=== PATIENT | female | born 1950 ===

== ENCOUNTER 2018-02-20 21:34 | Emergency (ER) | payer OTHER ==
[2018-02-20 21:39] VITALS: BMI 40.2
[2018-02-20 21:57] VITALS: RESP 18; TEMP 98.7
--- NOTE | 2018-02-20 22:26 | ED PDOC ---
Arrival/HPI - General Chief Complaint: Abdominal Pain Time Seen by Provider: 02/20/18 21:36 Historian: Patient - History of Present Illness Narrative History of Present Illness (Text): 02/20/18 22:21 67yo female with PMHx of hypertension, NIDDM, HCL, bipolar who was bib EMS for 3days history of nausea, diarrhea and mild epigastric pain. She did not take any medication. Denies chest pain, SOB, vomiting, diaphoresis, tearing/ripping upper back pain, dizziness, melena, hematochezia, any other complaint. Past Medical History - Provider Review Nursing Documentation Reviewed: Yes - Infectious Disease Hx of Infectious Diseases: None - Tetanus Immunization Tetanus Immunization: Unknown - Cardiac Hx Cardiac Disorders: (enlarged heart) Hx Hypertension: Yes - Pulmonary Hx Asthma: Yes - Neurological Hx Neurological Disorder: No - HEENT Hx HEENT Disorder: No - Renal Hx Renal Disorder: No - Endocrine/Metabolic Hx Endocrine Disorders: Yes Hx Diabetes Mellitus Type 2: Yes - Hematological/Oncological Hx Blood Disorders: No - Integumentary Hx Dermatological Disorder: No - Musculoskeletal/Rheumatological Hx Musculoskeletal Disorders: No Hx Falls: No Hx Unsteady Gait: Yes (uses cane off balance) - Gastrointestinal Hx Gastrointestinal Disorders: No - Genitourinary/Gynecological Hx Genitourinary Disorders: No - Psychiatric Hx Psychophysiologic Disorder: No Hx Anxiety: Yes Hx Bipolar Disorder: Yes Hx Depression: No Hx Emotional Abuse: No Hx Hallucinations: No Hx Panic Disorder: No Hx Post Traumatic Stress Disorder: No Hx Psychosis: No Hx Physical Abuse: No Hx Schizophrenia: No Hx Sexual Abuse: No Hx Substance Use: No - Surgical History Hx Cholecystectomy: Yes Hx Hysterectomy: Yes Other/Comment: right breast cyst removed, vascular sx - Anesthesia Hx Anesthesia: Yes Hx Anesthesia Reactions: No Hx Malignant Hyperthermia: No - Suicidal Assessment Feels Threatened In Home Enviroment: No Family/Social History - Physician Review Nursing Documentation Reviewed: Yes Family/Social History: Unknown Family HX Smoking Status: Never Smoked Hx Alcohol Use: No Hx Substance Use: No Hx Substance Use Treatment: No Allergies/Home Meds Allergies/Adverse Reactions: Allergies No Known Allergies Allergy (Verified 02/20/18 21:40) Home Medications: Home Meds Medication Instructions Recorded Confirmed Captopril 50 mg PO BID 05/28/12 02/20/18 Gabapentin 300 mg PO BID 05/28/12 02/20/18 Metformin Hydrochloride [Metformin] 850 mg PO BID 05/28/12 02/20/18 Ergocalciferol [Drisdol 50,000 50,000 iu PO QWK 08/03/12 02/20/18 Intl Units Cap] Simvastatin 20 mg PO DAILY 08/03/12 02/20/18 Albuterol 0.083% [Albuterol 0.083% 2.5 mg IH DAILY 04/04/15 02/20/18 Inhal Lucy (2.5 mg/3 ml) UD] Albuterol Sulfate [Ventolin Hfa] 0.09 mg IH DAILY 04/04/15 02/20/18 Alendronate Sodium [Binosto] 70 mg PO DAILY 04/04/15 02/20/18 Amlodipine Besylate 5 mg PO DAILY 04/04/15 02/20/18 Clonazepam 0.5 mg PO PRN PRN 04/04/15 02/20/18 DiphenhydrAMINE [Benadryl] 50 mg PO PRN PRN 04/04/15 02/20/18 Ergocalciferol [Calciferol] 50,000 iu PO DAILY 04/04/15 02/20/18 Glimepiride [Amaryl] 1 mg PO DAILY 04/04/15 02/20/18 Levothyroxine [Synthroid] 0.025 mg PO DAILY 04/04/15 02/20/18 Lisinopril 30 mg PO DAILY 04/04/15 02/20/18 Omeprazole [Prilosec] 40 mg PO DAILY 04/04/15 02/20/18 Sertraline Hydrochloride 100 mg PO DAILY 04/04/15 02/20/18 [Sertraline] Tramadol Hydrochloride [Tramadol] 50 mg PO DAILY 04/04/15 02/20/18 Zolpidem Tartrate [Zolpidem] 10 mg PO DAILY 04/04/15 02/20/18 Review of Systems - Physician Review All systems were reviewed & negative as marked: Yes - Review of Systems Constitutional: Normal Eyes: Normal ENT: Normal Respiratory: Normal Cardiovascular: Normal Gastrointestinal: Abdominal Pain, Diarrhea, Nausea. absent: Constipation, Vomiting, Hematochezia, Hematemesis Genitourinary Female: Normal Musculoskeletal: Normal Skin: Normal Neurological: Normal Endocrine: Normal Hemo/Lymphatic: Normal Psychiatric: Normal Physical Exam Vital Signs Reviewed: Yes Vital Signs Temp Pulse Resp BP Pulse Ox 02/20/18 21:56 98.7 F 106 H 18 169/69 H 94 L Temperature: Afebrile Blood Pressure: Normal Pulse: Tachycardic Respiratory Rate: Normal Appearance: Positive for: Well-Appearing, Non-Toxic, Comfortable Pain Distress: None Mental Status: Positive for: Alert and Oriented X 3 - Systems Exam Head: Present: Atraumatic, Normocephalic Pupils: Present: PERRL Extroacular Muscles: Present: EOMI Conjunctiva: Present: Normal Mouth: Present: Moist Mucous Membranes Neck: Present: Normal Range of Motion Respiratory/Chest: Present: Clear to Auscultation, Good Air Exchange. No: Respiratory Distress, Accessory Muscle Use Cardiovascular: Present: Regular Rate and Rhythm, Normal S1, S2. No: Murmurs Abdomen: Present: Tenderness (Mild epigastric tenderness on deep palpation), Other (soft). No: Distention, Peritoneal Signs, Rebound, Guarding, McBurney's Point Tender, Rovsing's Sign Present Back: Present: Normal Inspection Upper Extremity: Present: Normal Inspection. No: Cyanosis, Edema Lower Extremity: Present: Normal Inspection. No: Edema Neurological: Present: GCS=15, CN II-XII Intact, Speech Normal Skin: Present: Warm, Dry, Normal Color. No: Rashes Psychiatric: Present: Alert, Oriented x 3, Normal Insight, Normal Concentration Medical Decision Making ED Course and Treatment: 02/21/18 01:27 Pt in ED for stated history. She was comfortable and in no distress in ED. On re evaluation she notes that she feels better. She was noted to tolerate PO fluid in ED. She had very mild tenderness with deep palpation. Lab was unremarkable with exception of BS of 215, pt is on hypoglycemic. Abdominal CT - No acute finding. 02/21/18 01:35 Result was DW the pt. She was DC hoem with Zofran and pepcid for her symptoms. She was advised to f/u with her PMD. Advised to return to ED if symptom worsens. - Lab Interpretations Lab Results: 02/20/18 22:58 02/20/18 22:58 Lab Results 02/21/18 00:48: Urine Color Yellow, Urine Appearance Clear, Urine pH 6.0, Ur Specific [place] <= 1.005, Urine Protein 30 H, Urine Glucose (UA) Negative, Urine Ketones Negative, Urine Blood Trace-lysed H, Urine Nitrate Negative, Urine Bilirubin Negative, Urine Urobilinogen 0.2, Ur Leukocyte Esterase Negative , Urine RBC Pending, Urine WBC Pending 02/20/18 22:58: pO2 43, VBG pH 7.35, VBG pCO2 53.0, VBG HCO3 29.3 H, VBG Total CO2 30.9 H, VBG O2 Sat (Calc) 80.6 H, VBG Base Excess 2.5 H, VBG Potassium 4.4, Sodium 140.0, Chloride 102.0, Glucose 224 H, Lactate 3.3 H, FiO2 21.0, Venous Blood Potassium 4.4 02/20/18 22:58: Sodium 144, Chloride 100, Potassium 4.5, Carbon Dioxide 27, Anion Gap 22 H, BUN 16, Creatinine 0.8, Est GFR ( Amer) > 60, Est GFR ( Non-Af Amer) > 60, Random Glucose 215 H, Calcium 10.2, Total Bilirubin 0.3, AST 33, ALT 32, Alkaline Phosphatase 76, Lactate Dehydrogenase 416, Total Creatine Kinase 56, Troponin I < 0.01, Total Protein 8.5 H, Albumin 4.8, Globulin 3.7, Albumin/Globulin Ratio 1.3, Amylase 83, Lipase 121 02/20/18 22:58: PT 12.2, INR 1.07, APTT 28.0 02/20/18 22:58: WBC 10.1, RBC 4.88, Hgb 11.9 L, Hct 38.2, MCV 78.3 L, MCH 24.4 L , MCHC 31.2, RDW 14.9 H, Plt Count 239, MPV 9.3, Gran % 72.8 H, Lymph % (Auto) 19.1 L, [place] % (Auto) 6.8 H, Eos % (Auto) 1.1 L, Baso % (Auto) 0.2, Gran # 7.38 H, Lymph # (Auto) 1.9, [place] # (Auto) 0.7 H, Eos # (Auto) 0.1, Baso # (Auto) 0.02 - RAD Interpretation Radiology Orders: 02/20/18 21:47 ABD & PELVIS IV CONTRAST ONLY [CT] Stat - Medication Orders Current Medication Orders: Discontinued Medications Famotidine (Pepcid) 20 mg IVP STAT STA Stop: 02/20/18 21:47 Last Admin: 02/20/18 22:30 Dose: 20 mg IVP Administration Document 02/20/18 22:30 RD (Rec: 02/20/18 22:30 RD [id number]) Charges for Administration # of IVP Administrations 1 Ondansetron HCl (Zofran Inj) 4 mg IVP STAT STA Stop: 02/20/18 21:47 Last Admin: 02/20/18 22:29 Dose: 4 mg IVP Administration Document 02/20/18 22:29 RD (Rec: 02/20/18 22:29 RD [id number]) Charges for Administration # of IVP Administrations 1 Disposition/Present on Arrival - Present on Arrival Any Indicators Present on Arrival: No History of DVT/PE: No History of Uncontrolled Diabetes: No Urinary Catheter: No History of Decub. Ulcer: No History Surgical Site Infection Following: None - Disposition Have Diagnosis and Disposition been Completed?: Yes Diagnosis: Nausea, Abdominal pain Disposition: HOME/ ROUTINE Disposition Time: :25 Patient Plan: Discharge Condition: STABLE Discharge Instructions (ExitCare): Acute Abdomen (Belly Pain) Additional Instructions: Follow up with your Doctor Return to ED for any new symptoms Prescriptions: Famotidine [Pepcid] 40 mg PO DAILY #12 tab Ondansetron ODT [Zofran ODT] 4 mg PO Q6 #8 odt Referrals: Sylvia Segal DO [Primary Care Provider] - Follow up with primary Forms: [employer] (Urdu)
[2018-02-20 23:03] LABS: VENOUS BLOOD GAS BASE EXCESS 2.5 mmol/L (0.0-2.0); VENOUS BLOOD GAS PO2 43 mm/Hg (30-55); VENOUS BLOOD PH 7.35 (7.32-7.43)
[2018-02-20 23:06] LABS: BASO # 0.02 K/mm3 (0.0-2.0); BASO % 0.2 % (0.0-3.0); EOS # 0.1 (0.0-0.7); EOS % 1.1 % (1.5-5.0); GRAN # 7.38 (1.4-6.5); GRAN % 72.8 % (50.0-68.0); HEMOGLOBIN 11.9 g/dL (12.0-16.0); LYMPH # 1.9 (1.2-3.4); LYMPH % 19.1 % (22.0-35.0); MEAN CELL VOLUME 78.3 fl (80.0-105.0); MEAN CORPUSCULAR HEMOGLOBIN 24.4 pg (25.0-35.0); MEAN CORPUSCULAR HGB CONC 31.2 g/dl (31.0-37.0); MEAN PLATELET VOLUME 9.3 fl (7.0-11.0); MONO # 0.7 (0.1-0.6); MONO % 6.8 % (1.0-6.0); RBC 4.88 10^6/uL (3.5-6.1); RED CELL DISTRIBUTION WIDTH 14.9 % (11.5-14.5); WHITE BLOOD COUNT 10.1 10^3/ul (4.5-11.0)
[2018-02-20 23:16] LABS: ALB/GLOB RATIO 1.3 (1.1-1.8); ALBUMIN 4.8 g/dL (3.0-4.8); ALT/SGPT 32 U/L (7-56); AMYLASE 83 U/L (35-125); AST/SGOT 33 U/L (14-36); BLOOD UREA NITROGEN 16 mg/dL (7-21); CALCIUM 10.2 mg/dL (8.4-10.5); GFR AFRICAN-AMERICAN > 60; GFR NON-AFRICAN AMERICAN > 60; LIPASE 121 U/L (23-300)
[2018-02-20 23:21] LABS: INR 1.07 (0.93-1.08); PROTHROMBIN TIME 12.2 SECONDS (9.4-12.5)
[2018-02-20 23:25] LABS: TROPONIN I < 0.01 ng/mL
[2018-02-20] MEDS ORDERED: Iohexol 350 MG/100 ML VIAL ONE (23:49)
--- NOTE | 2018-02-21 00:30 | CT ---
EXAM: CT Abdomen and Pelvis With Intravenous Contrast CLINICAL HISTORY: 67 years old, female; Pain; Abdominal pain TECHNIQUE: Axial computed tomography images of the abdomen and pelvis with intravenous contrast. All CT scans at this facility use one or more dose reduction techniques, viz.: automated exposure control; ma/kV adjustment per patient size (including targeted exams where dose is matched to indication; i.e. head); or iterative reconstruction technique. Coronal and sagittal reformatted images were created and reviewed. CONTRAST: 96 mL of omni 350 administered intravenously. COMPARISON: No relevant prior studies available. FINDINGS: Limitations: Motion artifact - mild. Lung bases: Mild atelectasis/scarring. Elevated RIGHT hemidiaphragm. ABDOMEN: Liver: Fatty infiltration. Small calcification. Gallbladder and bile ducts: Gallbladder not visualized. No significant ductal dilation. Pancreas: No ductal dilation. No mass. Spleen: No splenomegaly. Adrenals: No mass. Kidneys and ureters: No mass. No hydronephrosis. Stomach and bowel: No definite mural thickening. No obstruction. Appendix: Normal caliber. No inflammation. PELVIS: Bladder: Unremarkable. Reproductive: Unremarkable as visualized. ABDOMEN and PELVIS: Intraperitoneal space: No significant fluid collection. No free air. Bones/joints: Degenerative changes of spine. No acute fracture. Soft tissues: Tiny umbilical hernia containing fat. Vasculature: Mild atherosclerotic disease. No aneurysm. Lymph nodes: No pathologically enlarged lymph nodes. IMPRESSION: 1.No definite acute intraabdominal abnormality. 2.Non-acute findings are described above.
[2018-02-21 01:19] LABS: URINE BILIRUBIN NEGATIVE (NEGATIVE); URINE BLOOD TRACE-LYSED (NEGATIVE); URINE GLUCOSE (UA) NEGATIVE (NEGATIVE); URINE LEUKOCYTE ESTERASE NEGATIVE Leu/uL (NEGATIVE); URINE PROTEIN 30 mg/dL (<30 mg/dL); URINE UROBILINOGEN 0.2 E.U./dL (<1 E.U./dL)
[2018-02-21 01:21] LABS: URINE APPEARANCE CLEAR (CLEAR); URINE COLOR YELLOW (YELLOW)
[2018-02-21 01:30] LABS: URINE BACTERIA OCC (NEG); URINE EPITHELIAL CELLS MANY /hpf (0-5); URINE RBC 0 - 2 /hpf (0-2); URINE WBC 0 - 2 /hpf (0-6)
[2018-02-21 01:37] VITALS: BP 137/80; PULSE 94; O2SAT 96
== END 2018-02-21 01:37 | disposition home or self-care (01) ==
LOC: ED 21:34
DX: R10.13 Epigastric pain (principal); R11.0 Nausea; E11.9 Type 2 diabetes mellitus without complications; I10 Essential (primary) hypertension
CPT/HCPCS: 74177; 80053; 81001; 82150; 82550; 82803; 83615; 83690; 84484; 85025; 85610; 85730; 96374; 96375; 99284; J2405; Q9967

== ENCOUNTER 2018-08-11 13:43 | Observation (INO) | payer OTHER ==
[2018-08-11 13:53] VITALS: BMI 37.9
--- NOTE | 2018-08-11 14:23 | ED PDOC ---
Arrival/HPI - General Chief Complaint: Medical Clearance Time Seen by Provider: 08/11/18 14:05 Historian: Patient - History of Present Illness Narrative History of Present Illness (Text): 08/11/18 14:19 67 year old Lao speaking female, with past medical history of hypertension, NIDDM, HCL, and bipolar disorder, presents to the Emergency department complaining of generalized weakness, decreased appetite and "feeling cold' for past 2 weeks. Patient informs visiting her PMD with the presented symptoms prior to arrival, who subsequently referred her to the Emergency department for possible hyperglycemia and hypertension. Upon arrival to the Emergency department, patient's blood sugar was measured to be 101 mg/dL and blood pressure was 134/73 mmHg. Patient denies any other associated somatic complaints. Patient denies any fever, chills, nausea, vomiting, diarrhea, abdominal pain, chest pain, shortness of breath, cough, neck pain, back pain, headache, dizziness or any other complaints. PMD: Dr. Amado Time/Duration: > week (2 weeks) Symptom Onset: Gradual Symptom Course: Unchanged Activities at Onset: Light Context: Home Past Medical History - Provider Review Nursing Documentation Reviewed: Yes - Infectious Disease Hx of Infectious Diseases: None - Tetanus Immunization Tetanus Immunization: Unknown - Cardiac Hx Cardiac Disorders: (enlarged heart) Hx Hypertension: Yes - Pulmonary Hx Asthma: Yes - Neurological Hx Neurological Disorder: No - HEENT Hx HEENT Disorder: No - Renal Hx Renal Disorder: No - Endocrine/Metabolic Hx Endocrine Disorders: Yes Hx Diabetes Mellitus Type 2: Yes - Hematological/Oncological Hx Blood Disorders: No - Integumentary Hx Dermatological Disorder: No - Musculoskeletal/Rheumatological Hx Musculoskeletal Disorders: No Hx Falls: No Hx Unsteady Gait: Yes (uses cane off balance) - Gastrointestinal Hx Gastrointestinal Disorders: No - Genitourinary/Gynecological Hx Genitourinary Disorders: No - Psychiatric Hx Psychophysiologic Disorder: No Hx Anxiety: Yes Hx Bipolar Disorder: Yes Hx Depression: No Hx Emotional Abuse: No Hx Hallucinations: No Hx Panic Disorder: No Hx Post Traumatic Stress Disorder: No Hx Psychosis: No Hx Physical Abuse: No Hx Schizophrenia: No Hx Sexual Abuse: No Hx Substance Use: No - Surgical History Hx Cholecystectomy: Yes Hx Hysterectomy: Yes Other/Comment: right breast cyst removed, vascular sx - Anesthesia Hx Anesthesia: Yes Hx Anesthesia Reactions: No Hx Malignant Hyperthermia: No - Suicidal Assessment Feels Threatened In Home Enviroment: No Family/Social History - Physician Review Nursing Documentation Reviewed: Yes Family/Social History: No Known Family HX Smoking Status: Never Smoked Hx Alcohol Use: No Hx Substance Use: No Hx Substance Use Treatment: No Allergies/Home Meds Allergies/Adverse Reactions: Allergies No Known Allergies Allergy (Verified 08/11/18 13:53) Home Medications: Home Meds Medication Instructions Recorded Confirmed RX: Captopril 50 mg PO BID 05/28/12 02/20/18 RX: Gabapentin 300 mg PO BID 05/28/12 02/20/18 RX: Metformin Hydrochloride 850 mg PO BID 05/28/12 02/20/18 [Metformin] RX: Ergocalciferol [Drisdol 50,000 50,000 iu PO QWK 08/03/12 02/20/18 Intl Units Cap] RX: Simvastatin 20 mg PO DAILY 08/03/12 02/20/18 RX: Albuterol 0.083% [Albuterol 2.5 mg IH DAILY 04/04/15 02/20/18 0.083% Inhal Lucy (2.5 mg/3 ml) UD] RX: Albuterol Sulfate [Ventolin 0.09 mg IH DAILY 04/04/15 02/20/18 Hfa] RX: Alendronate Sodium [Binosto] 70 mg PO DAILY 04/04/15 02/20/18 RX: Amlodipine Besylate 5 mg PO DAILY 04/04/15 02/20/18 RX: Clonazepam 0.5 mg PO PRN PRN 04/04/15 02/20/18 RX: DiphenhydrAMINE [Benadryl] 50 mg PO PRN PRN 04/04/15 02/20/18 RX: Ergocalciferol [Calciferol] 50,000 iu PO DAILY 04/04/15 02/20/18 RX: Glimepiride [Amaryl] 1 mg PO DAILY 04/04/15 02/20/18 RX: Levothyroxine [Synthroid] 0.025 mg PO DAILY 04/04/15 02/20/18 RX: Lisinopril 30 mg PO DAILY 04/04/15 02/20/18 RX: Omeprazole [Prilosec] 40 mg PO DAILY 04/04/15 02/20/18 RX: Sertraline Hydrochloride 100 mg PO DAILY 04/04/15 02/20/18 [Sertraline] RX: Tramadol Hydrochloride 50 mg PO DAILY 04/04/15 02/20/18 [Tramadol] RX: Zolpidem Tartrate [Zolpidem] 10 mg PO DAILY 04/04/15 02/20/18 Review of Systems - Physician Review All systems were reviewed & negative as marked: Yes - Review of Systems Constitutional: absent: Fevers Respiratory: absent: SOB, Cough Cardiovascular: absent: Chest Pain Gastrointestinal: absent: Abdominal Pain, Diarrhea, Nausea, Vomiting Musculoskeletal: Other (generalized weakness). absent: Back Pain, Neck Pain Neurological: absent: Headache, Dizziness Physical Exam Vital Signs Reviewed: Yes Temperature: Afebrile Blood Pressure: Normal Pulse: Regular Respiratory Rate: Normal Appearance: Positive for: Well-Appearing, Non-Toxic, Comfortable Pain Distress: None Mental Status: Positive for: Alert and Oriented X 3 - Systems Exam Head: Present: Atraumatic, Normocephalic Pupils: Present: PERRL Extroacular Muscles: Present: EOMI Conjunctiva: Present: Normal Mouth: Present: Moist Mucous Membranes Neck: Present: Normal Range of Motion Respiratory/Chest: Present: Clear to Auscultation, Good Air Exchange. No: R espiratory Distress, Accessory Muscle Use Cardiovascular: Present: Regular Rate and Rhythm, Normal S1, S2. No: Murmurs Abdomen: No: Tenderness, Distention, Peritoneal Signs Back: Present: Normal Inspection Upper Extremity: Present: Normal Inspection. No: Cyanosis, Edema Lower Extremity: Present: Normal Inspection. No: Edema Neurological: Present: GCS=15, CN II-XII Intact, Speech Normal Skin: Present: Warm, Dry, Normal Color. No: Rashes Psychiatric: Present: Alert, Oriented x 3, Normal Insight, Normal Concentration Medical Decision Making ED Course and Treatment: 08/11/18 14:16 Impression: 67 year old female presents to the Emergency department complaining of generalized weakness, decreased appetite and "feeling cold". Plan: -- EKG -- Labs -- Chest X-ray -- Urinalysis -- Reassess and disposition Prior Visits: Notes and results from previous visits were reviewed. Progress Notes: 08/11/18 15:19 Chest X-ray reviewed by radiologist, shows no active disease. 08/11/18 19:30 labs mild leukoctyosis. cxr ua neg, abd soft pt tolerating po. case discussed with dr amado. accepts for obs. - RAD Interpretation Radiology Orders: 08/11/18 14:18 CHEST PORTABLE [RAD] Stat - Scribe Statement The provider has reviewed the documentation as recorded by the Scribe Mariano Chua. All medical record entries made by the Scribe were at my direction and personally dictated by me. I have reviewed the chart and agree that the record accurately reflects my personal performance of the history, physical exam, medical decision making, and the department course for this patient. I have also personally directed, reviewed, and agree with the discharge instructions and d isposition. Disposition/Present on Arrival - Present on Arrival Any Indicators Present on Arrival: No History of DVT/PE: No History of Uncontrolled Diabetes: No Urinary Catheter: No History of Decub. Ulcer: No History Surgical Site Infection Following: None - Disposition Have Diagnosis and Disposition been Completed?: Yes Diagnosis: Near syncope, Leukocytosis Disposition: HOSPITALIZED Disposition Time: 03:00 Condition: STABLE
--- NOTE | 2018-08-11 14:51 | RAD ---
Date of service: 08/11/2018 HISTORY: chills COMPARISON: 04/04/2015. FINDINGS: LUNGS: There are low lung volumes. No focal consolidation. PLEURA: No significant pleural effusion identified, no pneumothorax apparent. CARDIOVASCULAR: Normal. OSSEOUS STRUCTURES: No significant abnormalities. VISUALIZED UPPER ABDOMEN: Normal. OTHER FINDINGS: None. IMPRESSION: No acute findings.
[2018-08-11] MEDS ORDERED: Sodium Chloride 0.9% 1,000 ML IV STA (14:56)
[2018-08-11 16:12] LABS: BASO # 0.04 K/mm3 (0.0-2.0); BASO % 0.3 % (0.0-3.0); EOS # 0.1 (0.0-0.7); EOS % 0.6 % (1.5-5.0); GRAN # 9.7 (1.4-6.5); GRAN % 77.9 % (50.0-68.0); LYMPH % 16.2 % (22.0-35.0); MEAN CELL VOLUME 81.3 fl (80.0-105.0); MEAN CORPUSCULAR HEMOGLOBIN 25.9 pg (25.0-35.0); MEAN CORPUSCULAR HGB CONC 31.8 g/dl (31.0-37.0); MEAN PLATELET VOLUME 9.2 fl (7.0-11.0); MONO # 0.6 (0.1-0.6); RBC 4.64 10^6/uL (3.5-6.1); RED CELL DISTRIBUTION WIDTH 14.7 % (11.5-14.5); WHITE BLOOD COUNT 12.4 10^3/ul (4.5-11.0)
[2018-08-11 16:20] LABS: URINE BILIRUBIN NEGATIVE (NEGATIVE); URINE BLOOD NEGATIVE (NEGATIVE); URINE GLUCOSE (UA) NEGATIVE (NEGATIVE); URINE LEUKOCYTE ESTERASE TRACE Leu/uL (NEGATIVE); URINE PROTEIN NEGATIVE mg/dL (<30 mg/dL); URINE UROBILINOGEN 0.2 E.U./dL (<1 E.U./dL)
[2018-08-11 16:22] LABS: URINE APPEARANCE CLEAR (CLEAR); URINE COLOR YELLOW (YELLOW)
[2018-08-11 16:23] LABS: INR 1.09; PARTIAL THROMBOPLASTIN TIME 30.1 Seconds (25.1-36.5); PROTHROMBIN TIME 12.5 SECONDS (9.4-12.5)
[2018-08-11 16:26] LABS: URINE RBC NEGATIVE /hpf (0-2)
[2018-08-11 16:27] LABS: URINE BACTERIA NEG (NEG); URINE EPITHELIAL CELLS 0 - 2 /hpf (0-5); URINE WBC 0 - 2 /hpf (0-6)
[2018-08-11 16:32] LABS: ALB/GLOB RATIO 1.1 (1.1-1.8); ALBUMIN 4.5 g/dL (3.0-4.8); ALT/SGPT 25 U/L (7-56); AST/SGOT 38 U/L (14-36); BLOOD UREA NITROGEN 24 mg/dL (7-21); CALCIUM 9.9 mg/dL (8.4-10.5); GFR NON-AFRICAN AMERICAN 56
[2018-08-11 16:41] LABS: TROPONIN I < 0.01 ng/mL
[2018-08-11] MEDS ORDERED: Pneumococcal 23-Valent Vaccine IM ONE (22:34)
[2018-08-11] MEDS ORDERED: Influenza Vaccine 60 mcg/0.5 mL SYR (4YR UP) IM ONE (22:34)
[2018-08-12] MEDS ORDERED: Albuterol 0.083% Inhal Sol (2.5 mg/3 mL) UD IH PRN (09:01)
[2018-08-12] MEDS ORDERED: Sodium Chloride 0.45% 1,000 ML IV SCH (09:15)
[2018-08-12 09:48] VITALS: O2SAT 96
[2018-08-12 09:59] LABS: ALBUMIN 4.5 g/dL (3.0-4.8); ALT/SGPT 37 U/L (7-56); AST/SGOT 42 U/L (14-36); BLOOD UREA NITROGEN 25 mg/dL (7-21); CALCIUM 9.7 mg/dL (8.4-10.5); GFR NON-AFRICAN AMERICAN 56
[2018-08-12] MEDS ORDERED: cefTRIAXone 1 gm 1 GM/100 ML BAG IVPB SCH (10:00)
[2018-08-12] MEDS ORDERED: Levothyroxine 25 MCG TAB PO SCH (10:00)
[2018-08-12] MEDS ORDERED: Insulin Reg-LOW-Coverage SC SCH (11:30)
[2018-08-12 12:34] VITALS: BP 125/79; RESP 18; TEMP 98
--- NOTE | 2018-08-12 14:29 | CARD ---
APPROVED REPORT Date of service: 08/11/2018 EKG Measurement Heart [id number] <Conclusion> Normal sinus rhythm Incomplete right bundle branch block Borderline ECG
[2018-08-12 14:56] VITALS: PULSE 92
--- NOTE | 2018-08-12 22:16 | HP ---
HISTORY OF PRESENT ILLNESS: The patient is 67 years old who was seen in office yesterday. She was very lethargic, somewhat confused, disoriented; according to , has not been eating well for the last few days, looked dehydrated and a little hypotensive with blood pressure of 100/60, called ambulance and she was brought to emergency room for further workup. Has been having weakness and unable to tolerate food for the last few days. Has been nauseous and loss of appetite. No history of cough, congestion or shortness of breath. Did have abdominal discomfort off and on and also has difficulty walking. PAST MEDICAL HISTORY: Significant for; 1. Hypertension. 2. Asm-juenwve-wfdryfplf diabetes. 3. History of asthma. 4. Anxiety disorder. 5. Diabetic neuropathy. 6. Hypothyroidism. PAST SURGICAL HISTORY: Significant for cholecystectomy and hysterectomy. ALLERGIES: SHE IS NOT ALLERGIC TO ANY MEDICATIONS. MEDICATIONS AT HOME: The patient is on Percocet, Zofran, Prilosec 40 mg daily, lisinopril 30 mg daily, levothyroxine 25 mcg daily, Amaryl 1 mg daily, Pepcid 40 mg daily, vitamin D. She takes Bentyl as needed, Klonopin 0.5 t.i.d. p.r.n., captopril 50 mg twice a day, alendronate, gabapentin, amlodipine and olmesartan, and Zocor 20 mg daily. SOCIAL HISTORY: She is , lives with her . Denies smoking or drinking alcohol use. PHYSICAL EXAMINATION GENERAL: Today, she is awake, alert, oriented, communicative. She states she feels a lot better, wants to go home. VITAL SIGNS: She is afebrile, pulse 82, respirations 20, blood pressure 123/67. LUNGS: Bilateral fair airflow. No rhonchi or crackle. HEART: S1 and S2, audible. ABDOMEN: Soft. Nontender. Obese. No hepatosplenomegaly. NEUROLOGICAL: The patient is awake, alert, oriented, communicative. LABORATORY DATA: WBC is 12.4, hemoglobin 12, hematocrit 37 and platelet 260. PT is 12.5, INR 1.09. Chemistry: Sodium of 140, potassium 5, chloride 101, CO2 of 26, BUN 25, creatinine 1, blood sugar of 286, random sugar is 257. Urinalysis, trace leukocyte. X-ray chest is unremarkable. ASSESSMENT: 1. Probably gastroenteritis. 2. Dehydration. 3. History of hypertension. 4. Vyw-dpqxkdu-xrbjghqsy diabetes. PLAN: The patient is clinically stable, wants to go home. She is hemodynamically stable, eating and tolerating. So, we will discharge her after lunchtime today. Nabor Amado MD
== END 2018-08-12 15:10 | disposition home or self-care (01) ==
LOC: ED 13:43 → ERH 17:04 → 3RNO 19:35
PROVIDERS: ADMIT Internal Medicine; ATTEND Internal Medicine
DX: R55 Syncope and collapse (principal); E86.0 Dehydration; E11.40 Type 2 diabetes mellitus with diabetic neuropathy, unspecified; I10 Essential (primary) hypertension; E03.9 Hypothyroidism, unspecified; F31.9 Bipolar disorder, unspecified; F41.9 Anxiety disorder, unspecified; J45.909 Unspecified asthma, uncomplicated; Z79.84 Long term (current) use of oral hypoglycemic drugs
CPT/HCPCS: 36415; 71045; 80053; 81001; 82550; 82948; 83615; 83735; 84484; 85025; 85610; 85730; 87086; 93005; 99285; C9113; G0378; J0696; J7030

== ENCOUNTER 2018-11-29 11:07 | Emergency (ER) | payer OTHER ==
[2018-11-29 11:15] VITALS: BMI 35.4
[2018-11-29 11:22] VITALS: RESP 18; TEMP 98.1
[2018-11-29] MEDS ORDERED: Sodium Chloride 0.9% 1,000 ML IV SCH (12:15)
[2018-11-29 12:23] LABS: BASO # 0.02 K/mm3 (0.0-2.0); BASO % 0.2 % (0.0-3.0); EOS % 0.4 % (1.5-5.0); GRAN # 8.06 (1.4-6.5); GRAN % 79.4 % (50.0-68.0); HEMOGLOBIN 11.8 g/dL (12.0-16.0); LYMPH # 1.7 (1.2-3.4); LYMPH % 16.5 % (22.0-35.0); MEAN CELL VOLUME 83.9 fl (80.0-105.0); MEAN CORPUSCULAR HEMOGLOBIN 26.5 pg (25.0-35.0); MEAN CORPUSCULAR HGB CONC 31.6 g/dl (31.0-37.0); MEAN PLATELET VOLUME 9.4 fl (7.0-11.0); MONO # 0.4 (0.1-0.6); MONO % 3.5 % (1.0-6.0); RBC 4.46 10^6/uL (3.5-6.1); RED CELL DISTRIBUTION WIDTH 13.4 % (11.5-14.5); WHITE BLOOD COUNT 10.2 10^3/uL (4.5-11.0)
[2018-11-29 12:31] LABS: ALB/GLOB RATIO 1.2 (1.1-1.8); ALBUMIN 4.4 g/dL (3.0-4.8); ALT/SGPT 17 U/L (7-56); AST/SGOT 20 U/L (14-36); BLOOD UREA NITROGEN 13 mg/dL (7-21); GFR NON-AFRICAN AMERICAN > 60; LIPASE 107 U/L (23-300)
--- NOTE | 2018-11-29 12:43 | ED PDOC ---
Arrival/HPI - General Chief Complaint: Anxiety Time Seen by Provider: 11/29/18 11:19 Historian: Patient - History of Present Illness Narrative History of Present Illness (Text): 11/29/18 12:39 A 68 year old female, whose past medical history includes hypertension, NIDDM, HCL, and bipolar disorder, presents to the emergency department complaining of nausea and abdominal pain for 3 days. Patient reports pain has been so severe, s he has been unable to leave her home. Mentions nausea has been on/off for the past year. 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 Patient notes also experiencing 1 episode of diarrhea and some lightheadedness, however denies any bloody stool, fever, chest pain, shortness of breath, or any other complaints at this time. Also, patient mentions not having received flu shot. PMD: Dr. Amado 11/29/18 13:41 Past Medical History - Provider Review Nursing Documentation Reviewed: Yes - Infectious Disease Hx of Infectious Diseases: None - Tetanus Immunization Tetanus Immunization: Unknown - Cardiac Hx Cardiac Disorders: Yes (enlarged heart) Hx Hypertension: Yes - Pulmonary Hx Respiratory Disorders: Yes Hx Asthma: Yes - Neurological Hx Neurological Disorder: No - HEENT Hx HEENT Disorder: No - Renal Hx Renal Disorder: No - Endocrine/Metabolic Hx Endocrine Disorders: Yes Hx Diabetes Mellitus Type 2: Yes - Hematological/Oncological Hx Blood Disorders: No - Integumentary Hx Dermatological Disorder: No - Musculoskeletal/Rheumatological Hx Musculoskeletal Disorders: Yes Hx Falls: No Hx Unsteady Gait: Yes (uses cane off balance) - Gastrointestinal Hx Gastrointestinal Disorders: No - Genitourinary/Gynecological Hx Genitourinary Disorders: No - Psychiatric Hx Psychophysiologic Disorder: Yes Hx Anxiety: Yes Hx Bipolar Disorder: Yes Hx Depression: No Hx Emotional Abuse: No Hx Hallucinations: No Hx Panic Disorder: No Hx Post Traumatic Stress Disorder: No Hx Psychosis: No Hx Physical Abuse: No Hx Schizophrenia: No Hx Sexual Abuse: No Hx Substance Use: No - Surgical History Hx Cholecystectomy: Yes Hx Hysterectomy: Yes Other/Comment: right breast cyst removed, vascular sx - Anesthesia Hx Anesthesia: Yes Hx Anesthesia Reactions: No Hx Malignant Hyperthermia: No - Suicidal Assessment Feels Threatened In Home Enviroment: No Family/Social History - Physician Review Nursing Documentation Reviewed: Yes Family/Social History: No Known Family HX Smoking Status: Never Smoked Hx Alcohol Use: No Hx Substance Use: No Hx Substance Use Treatment: No Allergies/Home Meds Allergies/Adverse Reactions: Allergies No Known Allergies Allergy (Verified 08/11/18 13:53) Home Medications: Home Meds Medication Instructions Recorded Confirmed Atorvastatin [Lipitor] 80 mg PO DAILY 11/29/18 11/29/18 DiphenhydrAMINE [Benadryl] 50 mg PO PRN PRN 11/29/18 11/29/18 Glimepiride [amaRYL] 2 mg PO DAILY 11/29/18 11/29/18 Lisinopril [Prinivil] 20 mg PO DAILY 11/29/18 11/29/18 Metoclopramide [Reglan] 5 mg PO DAILY 11/29/18 11/29/18 Omeprazole 20 mg PO DAILY 11/29/18 11/29/18 SITagliptin [Januvia] 100 mg PO DAILY 11/29/18 11/29/18 amLODIPine [Norvasc] 5 mg PO DAILY 11/29/18 11/29/18 clonazePAM [Klonopin] 0.25 mg PO DAILY 11/29/18 11/29/18 metFORMIN [glucOPHAGE] 1,000 mg PO DAILY 11/29/18 11/29/18 Review of Systems - Physician Review All systems were reviewed & negative as marked: Yes - Review of Systems Constitutional: absent: Fevers Respiratory: absent: SOB Cardiovascular: absent: Chest Pain Gastrointestinal: Abdominal Pain, Diarrhea, Nausea. absent: Stool Changes (no bloody stool) Physical Exam - Physical Exam Narrative Physical Exam (Text): Gen: VS reviewed, alert, well developed, well nourished, nontoxic, mild distress. ENT: normal pharynx, dry mucous membranes. Eye: EOMI, PERRL. Neck: no JVD, supple, no adenopathy. CV: tachycardic regular rhythm, no rubs, no murmur, no gallops, S1, S2, pulses equal and strong. Pulm: no distress, clear to auscultation, no wheeze, no rhonchi, breath sounds equal, no rales. Abd: slight epigastric tenderness, no guarding, no rebound, no rigidity, normal bowel sounds. Ext: no edema. Skin: good color, no rash, no cyanosis. Psych: responds appropriately to questions, normal affect. Neuro: oriented x 3, CN2-12 intact grossly, motor intact, sensation intact. Vital Signs Temp Pulse Resp BP Pulse Ox 11/29/18 11:21 109 H 18 149/88 96 11/29/18 11:08 98.1 F 108 H 18 149/88 96 Finger Stick Blood Glucose: 219 Medical Decision Making ED Course and Treatment: 11/29/18 12:43 Impression: 68 year old female with abdominal pain and nausea. Plan: -- EKG -- Labs -- Hepatic Ultrasound -- Zofran -- IV Fluids -- Reassess and disposition Prior Visits: Notes and results from previous visits were reviewed. Patient was last seen in the emergency department on 08/11/2018 for generalized weakness. Patient was admitted. Progress Notes: 11/29/18 11:41 EKG: Ordered, reviewed, and independently interpreted the EKG. Rate : 106 BPM Rhythm : Sinus tachycardia. Interpretation : Incomplete RBBB, no acute ST- and T- wave abnormality. Comparison : No previous EKG for comparison. 11/29/18 13:42 patient was seen for nausea, abdominal cramping and diarrhea. no fever or bloody stools. nausea resolved after dose of zofran. symptoms appear consistent with enteritis. stable for dc and follow up with pcp. all discusssions with patient via guamanian language line. - Lab Interpretations Lab Results: Total Bilirubin 0.4 mg/dL (0.2-1.3) 11/29/18 12:00 AST 20 U/L (14-36) 11/29/18 12:00 ALT 17 U/L (7-56) 11/29/18 12:00 Alkaline Phosphatase 70 U/L (38-126) 11/29/18 12:00 Total Protein 8.2 g/dL (5.8-8.3) 11/29/18 12:00 Albumin 4.4 g/dL (3.0-4.8) 11/29/18 12:00 Globulin 3.8 gm/dL 11/29/18 12:00 Albumin/Globulin Ratio 1.2 (1.1-1.8) 11/29/18 12:00 Lipase 107 U/L (23-300) 11/29/18 12:00 I have reviewed the lab results: Yes - RAD Interpretation Narrative RAD Interpretations (Text): 11/29/2018 13:03 Abdominal Ultrasound IMPRESSION: Prior cholecystectomy. Partial imaging of the pancreas with the neck through tail unremarkable the head is partially obscured by overlying bowel gas. Remainder of the examination is unremarkable. Dictator: Brian Solano MD Radiology Orders: 11/29/18 12:02 HEPATIC [US] Stat - Medication Orders Current Medication Orders: Sodium Chloride (Sodium Chloride 0.9%) 1,000 mls @ 150 mls/hr IV .Q6H40M LESLEE Last Admin: 11/29/18 12:14 Dose: 150 mls/hr eMAR Start Stop Document 11/29/18 12:14 BB (Rec: 11/29/18 12:14 BB [id number]) Intravenous Solution Start Date 11/29/18 Start Time 12:14 Discontinued Medications Ondansetron HCl (Zofran Inj) 4 mg IVP STAT STA Stop: 11/29/18 12:02 Last Admin: 11/29/18 12:13 Dose: 4 mg IVP Administration Document 11/29/18 12:13 BB (Rec: 11/29/18 12:14 BB [id number]) Charges for Administration # of IVP Administrations 1 - Scribe Statement The provider has reviewed the documentation as recorded by the Barak Goodson Provider Scribe Attestation: All medical record entries made by the Scribe were at my direction and personally dictated by me. I have reviewed the chart and agree that the record accurately reflects my personal performance of the history, physical exam, medical decision making, and the department course for this patient. I have also personally directed, reviewed, and agree with the discharge instructions and disposition. Disposition/Present on Arrival - Present on Arrival Any Indicators Present on Arrival: No History of DVT/PE: No History of Uncontrolled Diabetes: No Urinary Catheter: No History of Decub. Ulcer: No History Surgical Site Infection Following: None - Disposition Have Diagnosis and Disposition been Completed?: Yes Diagnosis: Nausea, Diarrhea Disposition: HOME/ ROUTINE Disposition Time: 13:43 Patient Plan: Discharge Condition: STABLE Discharge Instructions (ExitCare): Nausea and Vomiting, Adult (DC), Diarrhea in Adolescents and Adults Print Language: [place] Additional Instructions: you must follow up with your primary care doctor. return for any new or worsening symptoms. Prescriptions: Ondansetron [Zofran] 4 mg PO Q8H #12 tab Forms: [facility] (Sudanese), WORK NOTE
--- NOTE | 2018-11-29 13:07 | US ---
Date of service: 11/29/2018 HISTORY: pain, ?gallstones COMPARISON: None. TECHNIQUE: Sonographic evaluation of the right upper quadrant of the abdomen. FINDINGS: LIVER: Measures 14.8 cm in length. Normal echogenicity of the liver parenchyma. No mass. No intrahepatic bile duct dilatation. GALLBLADDER: Prior cholecystectomy. COMMON BILE DUCT: Measures 6.0 mm. No stones. No dilatation. PANCREAS: The head of the pancreas is obscured by overlying bowel gas with remainder unremarkable. RIGHT KIDNEY: Measures 10.4 cm in length. Normal echogenicity. No calculus, mass, or hydronephrosis. AORTA: No aneurysmal dilatation. IVC: Unremarkable. OTHER FINDINGS: None . IMPRESSION: Prior cholecystectomy. Partial imaging of the pancreas with the neck through tail unremarkable the head is partially obscured by overlying bowel gas. Remainder the examination is unremarkable.
[2018-11-29 14:52] VITALS: BP 136/76; PULSE 97; O2SAT 97
--- NOTE | 2018-11-29 20:16 | CARD ---
APPROVED REPORT Date of service: 11/29/2018 EKG Measurement Heart [id number] <Conclusion> Sinus tachycardia Incomplete right bundle branch block Borderline ECG
== END 2018-11-29 14:54 | disposition home or self-care (01) ==
LOC: ED 11:07
DX: R11.0 Nausea (principal); R19.7 Diarrhea, unspecified; I10 Essential (primary) hypertension; E11.9 Type 2 diabetes mellitus without complications
CPT/HCPCS: 76705; 80053; 81025; 82948; 83690; 85025; 93005; 96374; 99285; J2405; J7030